=== PATIENT | female | born 1955 | race African-American/Black ===

== ENCOUNTER 2024-05-06 08:16 | Inpatient (IN) | payer OTHER, MEDICAID ==
[~2024-05-06] VITALS: Ht 167.6 cm; Wt 74.5 kg
[~2024-05-06 08:16] MED LIST: ALBU6.7H3 INH; ASPI-1406 MT; ATOR20TA65 MT; FURO40TA5 PO; LUBI8CAP MT; METO-411 MT; MONT-39 MT; PANT40TA51 MT; POTA-205 MT; VENL-180 MT
[2024-05-06 09:17] LABS: BASOPHILS % 0.5 % (0.0-2.0); EOSINOPHILS % 0.5 % (0.0-5.0); HEMATOCRIT. 45.8 % (36.0-48.0); LYMPHOCYTES % 15.3 % (20.0-50.0); MEAN CORPUSCULAR HEMOGLOBIN 29.8 pg (28.0-32.0); MEAN CORPUSCULAR HGB CONC 32.6 g/dL (31.0-37.0); MEAN CORPUSCULAR VOLUME 91.4 fL (81.0-99.0); MEAN PLATELET VOLUME 8.9 fl (7.4-10.4); NEUTROPHILS % 75.7 % (40.0-76.0); PLATELET 180 x1000/uL (130-400); RED BLOOD CELL COUNT 5.01 mill/uL (4.2-5.4); RED CELL DISTRIBUTION WIDTH 15.4 % (11.6-14.6); WHITE BLOOD COUNT 8.6 x1000/uL (4.5-11.0)
[2024-05-06 09:19] LABS: CHLORIDE 100 mEq/L (98-107); POTASSIUM 3.3 mEq/L (3.5-5.1); SODIUM 141 mEq/L (136-145)
[2024-05-06 09:20] LABS: CALCIUM 9.7 mg/dL (8.7-10.4); CARBON DIOXIDE 38 mEq/L (21-32)
[2024-05-06 09:25] LABS: CREATININE 1.1 mg/dL (0.6-1.0); GLUCOSE 100 mg/dL (70-105); UREA NITROGEN BLOOD 15 mg/dL (9-23)
[2024-05-06 09:44] LABS: TROPONIN I HIGH SENSITIVITY < 4 ng/L (3.0-34)
[2024-05-06 10:00] LABS: BG BASE EXCESS 8.2 mmol/L (-2.0-3.0); BG DEOXYHEMOGLOBIN 1.5 % (0.0-5.0); BG FRACTION INSPIRED OXYGEN 30; BG HCO3 ACT 36.5 mmol/L (21.0-28.0); BG METHEMOGLOBIN 0.1 % (0.5-1.5); BG OXYGEN SATURATION 98.5 % (94.0-98.0); BG OXYHEMOGLOBIN 97.4 % (94.0-98.0); BG PCO2 65.9 mmHg (32.0-45.0); BG PH 7.361 (7.350-7.450); BG PO2 109.6 mmHg (83.0-108.0); BG SAMPLE SITE RIGHT RADIAL; BG TOTAL HEMOGLOBIN 15.8 g/dL (12.0-16.0); BG VENT MODE NASAL CANNULA
[2024-05-06] MEDS: IPRATROPIUM BROMIDE (0.02%) 0.5MG/2.5ML NEB HHN STA (10:14)
[2024-05-06] MEDS: ALBUTEROL (0.083%) 2.5MG/3ML NEB HHN STA (10:14)
[2024-05-06 10:16] VITALS: PULSE 69; RESP 18; O2SAT 99
[2024-05-06] MEDS: METHYLPREDNISOLONE SOD SUCC 125MG/2ML (ACT-O-VIAL) IV STA (10:20)
[2024-05-06 10:25] LABS: BASOPHILS % 0.4 % (0.0-2.0); EOSINOPHILS % 0.6 % (0.0-5.0); HEMATOCRIT. 45.4 % (36.0-48.0); HEMOGLOBIN. 14.9 g/dL (12.0-16.0); LYMPHOCYTES % 18.3 % (20.0-50.0); MEAN CORPUSCULAR HEMOGLOBIN 29.9 pg (28.0-32.0); MEAN CORPUSCULAR HGB CONC 32.9 g/dL (31.0-37.0); MEAN PLATELET VOLUME 9.2 fl (7.4-10.4); NEUTROPHILS % 72.7 % (40.0-76.0); PLATELET 177 x1000/uL (130-400); RED BLOOD CELL COUNT 4.99 mill/uL (4.2-5.4); RED CELL DISTRIBUTION WIDTH 15.5 % (11.6-14.6); WHITE BLOOD COUNT 9.1 x1000/uL (4.5-11.0)
[2024-05-06 10:28] LABS: CLARITY URINE CLOUDY (CLEAR); COLOR URINE YELLOW (YELLOW); GLUCOSE URINE NEGATIVE (NEGATIVE); KETONES URINE NEGATIVE (NEGATIVE); LEUKOCYTE ESTERASE URINE 2+ (NEGATIVE); NITRITE URINE POSITIVE (NEGATIVE); OCCULT BLOOD URINE 1+ (NEGATIVE); PH URINE 5.5 (4.5-8.0); PROTEIN URINE TRACE (NEGATIVE); SPECIFIC GRAVITY URINE 1.013 (1.005-1.030)
[2024-05-06 10:41] LABS: SQUAMOUS EPITHELIAL CELL URINE 2+ /lpf (RARE/1+)
[2024-05-06 10:42] LABS: BACTERIA URINE 4+; WBC URINE 25-50 /hpf (0-2)
[2024-05-06] MEDS: ONDANSETRON HCL 4MG/2ML INJ IV ONE (10:45)
[2024-05-06] MEDS: CEFTRIAXONE 1GM/50ML 50 ML IV ONE (11:07)
[2024-05-06] MEDS ORDERED: ONDANSETRON HCL 4MG/2ML INJ IV PRN (16:15)
[2024-05-06] MEDS: METHYLPREDNISOLONE SOD SUCC 40MG/ML (ACT-O-VIAL) IV SCH (17:10)
[2024-05-06] MEDS: ENOXAPARIN 40MG/0.4ML SYR SUBCUT SCH (17:20)
[2024-05-06 20:26] VITALS: PULSE 75; RESP 20; O2SAT 94
[2024-05-06] MEDS: IPRATROPIUM/ALBUTEROL 0.5-3(2.5)MG/3ML NEB HHN SCH (20:26)
[2024-05-06 21:00] VITALS: BP 184/76; PULSE 95; RESP 20; TEMP 36.50292; O2SAT 100
[2024-05-06] MEDS ORDERED: NALOXONE HCL 0.4MG/ML VIAL IV PRN (21:45)
[2024-05-06] MEDS: POTASSIUM CHLORIDE 20MEQ TABLET SR PO NR (22:31)
[2024-05-06 22:53] LABS: *AMPHETAMINES SCREEN URINE NEGATIVE (NEGATIVE); *BARBITURATES SCREEN URINE NEGATIVE (NEGATIVE); *BENZODIAZEPINES SCREEN URINE NEGATIVE (NEGATIVE); *COCAINE SCREEN URINE NEGATIVE (NEGATIVE)
[2024-05-06 22:54] LABS: CANNABINOID URINE SCREEN NEGATIVE (NEGATIVE); ECSTASY MDMA SCREEN URINE NEGATIVE (NEGATIVE); METHADONE URINE SCREEN NEGATIVE (NEGATIVE); OPIATES URINE SCREEN NEGATIVE (NEGATIVE); PHENCYCLIDINE URINE SCREEN NEGATIVE (NEGATIVE)
[2024-05-06 23:24] VITALS: BP 184/76; PULSE 95; RESP 19; TEMP 36.5292
[2024-05-07] VITALS (11 sets, daily range): BP systolic 102–147; BP diastolic 56–84; PULSE 71–108; RESP 18–20; TEMP 35.94732–36.33624; O2SAT 93–99
[2024-05-07 07:37] LABS: CALCIUM 10.4 mg/dL (8.7-10.4); POTASSIUM 3.9 mEq/L (3.5-5.1)
[2024-05-07 07:41] LABS: T4 FREE 0.85 ng/dL (0.89-1.76); THYROID STIMULATING HORMONE 0.7 uIU/mL (0.55-4.78)
[2024-05-07 07:42] LABS: CREATININE 1.2 mg/dL (0.6-1.0)
[2024-05-07 07:48] LABS: HEMATOCRIT. 45.4 % (36.0-48.0); HEMOGLOBIN. 14.9 g/dL (12.0-16.0); MEAN CORPUSCULAR HEMOGLOBIN 30.2 pg (28.0-32.0); MEAN CORPUSCULAR HGB CONC 32.9 g/dL (31.0-37.0); MEAN CORPUSCULAR VOLUME 91.9 fL (81.0-99.0); MEAN PLATELET VOLUME 9.2 fl (7.4-10.4); PLATELET 195 x1000/uL (130-400); RED BLOOD CELL COUNT 4.94 mill/uL (4.2-5.4); RED CELL DISTRIBUTION WIDTH 15.4 % (11.6-14.6); WHITE BLOOD COUNT 10.5 x1000/uL (4.5-11.0)
[2024-05-07 07:52] LABS: DIFFERENTIAL COMMENT 1
[2024-05-07] MEDS: CEFTRIAXONE 1GM/50ML 50 ML IV SCH (09:31)
[2024-05-07] MEDS ORDERED: CEFTRIAXONE 1GM/50ML 50 ML IV SCH (11:00)
[2024-05-07 16:45] LABS: PLATELET ESTIMATE NORMAL
[2024-05-07] MEDS: ACETAMINOPHEN 325MG TABLET PO PRN (17:34)
[2024-05-08] VITALS (8 sets, daily range): BP systolic 115–130; BP diastolic 47–82; PULSE 85–105; RESP 18–20; TEMP 35.89176–36.61404; O2SAT 95–99
[2024-05-08] MEDS ORDERED: PRED10TA MT (11:33)
[2024-05-08] MEDS ORDERED: PRED10TA PO (12:55)
[2024-05-08] MEDS ORDERED: LIDOCAINE HCL 1% 10 MG/ML 10ML VIAL ONE (14:04)
[2024-05-08] MEDS: MEROPENEM 500MG/50ML 50 ML IV SCH (17:54)
[2024-05-09] VITALS (10 sets, daily range): BP systolic 126–140; BP diastolic 69–80; PULSE 72–103; RESP 16–20; TEMP 36.28068–36.55848; O2SAT 96–99
[2024-05-09] MEDS: HYDROCODONE/ACETAMINOPHEN 5/325MG TABLET PO PRN (04:44)
[2024-05-09] MEDS: MEROPENEM 1G/100ML IV SCH (17:43)
[2024-05-10] VITALS (10 sets, daily range): BP systolic 133–151; BP diastolic 79–99; PULSE 92–120; RESP 16–20; TEMP 35.8362–36.72516; O2SAT 93–98
[2024-05-10] MEDS: FLUCONAZOLE 150MG TABLET PO NR (16:56)
== END 2024-05-10 20:40 | disposition home health service (06) | DRG 189 ==
LOC: ER 08:16 → 5WST 11:27 → EDBEDREQTM 11:32 → EDBEDREQ 11:32 → 7EST 21:29
PROVIDERS: ADMIT Internal Medicine; ATTEND Internal Medicine
PROC: 02HV33Z Insertion of Infusion Device into Superior Vena Cava, Percutaneous Approach (ICD-10-PCS; principal; 2024-05-10)
PROC: B548ZZA Ultrasonography of Superior Vena Cava, Guidance (ICD-10-PCS; 2024-05-10)
DX: J96.22 Acute and chronic respiratory failure with hypercapnia (principal); J44.1 Chronic obstructive pulmonary disease with (acute) exacerbation; Z16.12 Extended spectrum beta lactamase (ESBL) resistance; K59.00 Constipation, unspecified; E87.6 Hypokalemia; B96.29 Other Escherichia coli [E. coli] as the cause of diseases classified elsewhere; Z90.5 Acquired absence of kidney; Z88.0 Allergy status to penicillin; Z88.2 Allergy status to sulfonamides; Z86.73 Personal history of transient ischemic attack (TIA), and cerebral infarction without residual deficits; Z87.891 Personal history of nicotine dependence; Z85.528 Personal history of other malignant neoplasm of kidney; Z79.899 Other long term (current) drug therapy
CPT/HCPCS: 36415; 36573; 36600; 71045; 74177; 80048; 80061; 80305; 81003; 82375; 82805; 82962; 83880; 84439; 84443; 84484; 85025; 87077; 87186; 93005; 93970; 94640; 99291; C1725; J0696; J1650; J2185; J2405; J2919; J2920; J3490

== ENCOUNTER 2024-10-13 16:27 | Inpatient (IN) | payer OTHER, MEDICAID, MEDICARE ==
[~2024-10-13] VITALS: Ht 167.6 cm; Wt 81.7 kg
[~2024-10-13 16:27] MED LIST changes: -LUBI8CAP MT; +OLAN5TAB74 PO; -POTA-205 MT; -VENL-180 MT
[2024-10-13 17:31] LABS: BASOPHILS % 0.9 % (0.0-2.0); EOSINOPHILS % 1.8 % (0.0-5.0); HEMATOCRIT. 43.3 % (36.0-48.0); LYMPHOCYTES % 26.7 % (20.0-50.0); MEAN CORPUSCULAR HEMOGLOBIN 29.3 pg (28.0-32.0); MEAN CORPUSCULAR HGB CONC 32.2 g/dL (31.0-37.0); MEAN PLATELET VOLUME 10.3 fl (7.4-10.4); MONOCYTES % 6.5 % (2.0-8.0); NEUTROPHILS % 64.1 % (40.0-76.0); PLATELET 189 x1000/uL (130-400); RED BLOOD CELL COUNT 4.76 mill/uL (4.2-5.4); WHITE BLOOD COUNT 8.9 x1000/uL (4.5-11.0)
[2024-10-13 17:39] LABS: CHLORIDE 101 mEq/L (98-107); POTASSIUM 4.1 mEq/L (3.5-5.1); SODIUM 143 mEq/L (136-145)
[2024-10-13 17:40] LABS: CARBON DIOXIDE 36 mEq/L (21-32)
[2024-10-13] MEDS ORDERED: IPRATROPIUM BROMIDE (0.02%) 0.5MG/2.5ML NEB HHN STA (17:43)
[2024-10-13] MEDS ORDERED: ALBUTEROL (0.083%) 2.5MG/3ML NEB HHN STA (17:43)
[2024-10-13 17:45] LABS: CREATININE 1.4 mg/dL (0.6-1.0); GLUCOSE 116 mg/dL (70-105); UREA NITROGEN BLOOD 18 mg/dL (9-23)
[2024-10-13 17:46] LABS: TROPONIN I HIGH SENSITIVITY < 4 ng/L (3.0-34)
[2024-10-13 18:10] VITALS: PULSE 88; RESP 20; O2SAT 99
[2024-10-13] MEDS: METHYLPREDNISOLONE SOD SUCC 125MG/2ML (ACT-O-VIAL) IV STA (18:10)
[2024-10-13 21:56] VITALS: BP 97/65; PULSE 68; RESP 22; TEMP 36.5
[2024-10-13] MEDS ORDERED: ALBUTEROL 6.7GM HFA INHALER ORI PRN (23:45)
[2024-10-14] VITALS: BP 98/61; PULSE 67; RESP 16; TEMP 36.4; O2SAT 98
[2024-10-14] MEDS ORDERED: IPRATROPIUM/ALBUTEROL 0.5-3(2.5)MG/3ML NEB HHN SCH
[2024-10-14] MEDS: METHYLPREDNISOLONE SOD SUCC 40MG/ML (ACT-O-VIAL) IV SCH (00:19)
[2024-10-14] MEDS: ACETAMINOPHEN 325MG TABLET PO PRN (01:27)
[2024-10-14 04:00] VITALS: BP 113/71; PULSE 54; RESP 15; TEMP 37; O2SAT 97
[2024-10-14] MEDS: PANTOPRAZOLE 40MG DR TABLET PO SCH (05:58)
[2024-10-14 06:26] LABS: HEMATOCRIT. 42.1 % (36.0-48.0); HEMOGLOBIN. 13.9 g/dL (12.0-16.0); LYMPHOCYTES % 12.5 % (20.0-50.0); MEAN CORPUSCULAR HEMOGLOBIN 29.9 pg (28.0-32.0); MEAN CORPUSCULAR VOLUME 90.7 fL (81.0-99.0); MEAN PLATELET VOLUME 10.1 fl (7.4-10.4); MONOCYTES % 0.6 % (2.0-8.0); NEUTROPHILS % 86.9 % (40.0-76.0); PLATELET 153 x1000/uL (130-400); RED BLOOD CELL COUNT 4.64 mill/uL (4.2-5.4); RED CELL DISTRIBUTION WIDTH 15.6 % (11.6-14.6); WHITE BLOOD COUNT 7.2 x1000/uL (4.5-11.0)
[2024-10-14 06:47] LABS: CALCIUM 9.6 mg/dL (8.7-10.4); POTASSIUM 4.1 mEq/L (3.5-5.1)
[2024-10-14 06:53] LABS: CREATININE 1.5 mg/dL (0.6-1.0)
[2024-10-14 08:00] VITALS: BP 94/71; PULSE 60; RESP 20; TEMP 36.7; O2SAT 98
[2024-10-14] MEDS: ASPIRIN 81MG EC TABLET PO SCH (08:12)
[2024-10-14] MEDS: METOPROLOL SUCCINATE 50MG ER TABLET PO SCH (08:14)
[2024-10-14] MEDS: ENOXAPARIN 40MG/0.4ML SYR SUBCUT SCH (08:15)
[2024-10-14 11:53] VITALS: BP 94/58; PULSE 68; RESP 13; TEMP 36.4; O2SAT 97
[2024-10-14 15:44] VITALS: BP 95/66; PULSE 65; RESP 24; TEMP 36.7; O2SAT 97
[2024-10-14] MEDS: MONTELUKAST SODIUM 10MG TABLET PO SCH (17:22)
[2024-10-14 20:00] VITALS: BP 88/53; PULSE 88; RESP 16; TEMP 36.8; O2SAT 98
[2024-10-14] MEDS: OLANZAPINE 10MG TABLET PO SCH (20:23)
[2024-10-14] MEDS: ATORVASTATIN CALCIUM 20MG TABLET PO SCH (20:24)
[2024-10-15] VITALS: BP 106/58; PULSE 65; RESP 17; TEMP 36.7; O2SAT 98
[2024-10-15 04:55] VITALS: BP 87/57; RESP 18; O2SAT 99
[2024-10-15 08:00] VITALS: BP 99/53; PULSE 51; RESP 18; TEMP 36.6; O2SAT 98
[2024-10-15 12:00] VITALS: BP 98/68; PULSE 64; RESP 26; TEMP 36.6; O2SAT 98
[2024-10-15 16:00] VITALS: BP 107/71; PULSE 65; RESP 20; TEMP 36.7; O2SAT 97
[2024-10-15 20:01] VITALS: BP 104/61; PULSE 56; RESP 21; TEMP 36.6; O2SAT 97
[2024-10-16 00:01] VITALS: BP 113/50; PULSE 58; RESP 16; TEMP 36.1; O2SAT 96
[2024-10-16 04:02] VITALS: BP 98/50; PULSE 48; RESP 19; TEMP 36.2; O2SAT 95
[2024-10-16 08:00] VITALS: BP 94/56; PULSE 59; RESP 19; TEMP 36.5; O2SAT 96
[2024-10-16 12:00] VITALS: BP 105/64; PULSE 44; RESP 17; TEMP 36.4; O2SAT 96
[2024-10-16] MEDS ORDERED: P20 MT (12:52)
[2024-10-16] MEDS ORDERED: PANT40TA51 PO (12:52)
[2024-10-16] MEDS ORDERED: MONT-46 PO (12:52)
[2024-10-16 15:27] VITALS: TEMP 97.9
[2024-10-17] MEDS ORDERED: FAMOTIDINE 20MG TABLET PO SCH (09:00)
== END 2024-10-16 17:47 | disposition home or self-care (01) | DRG 192 ==
LOC: ER 16:27 → 3WST 21:36
PROVIDERS: ADMIT Internal Medicine; ATTEND Internal Medicine
DX: J44.1 Chronic obstructive pulmonary disease with (acute) exacerbation (principal); F03.90 Unspecified dementia, unspecified severity, without behavioral disturbance, psychotic disturbance, mood disturbance, and anxiety; M79.662 Pain in left lower leg; M79.661 Pain in right lower leg; Z79.899 Other long term (current) drug therapy; Z88.0 Allergy status to penicillin; Z86.73 Personal history of transient ischemic attack (TIA), and cerebral infarction without residual deficits; Z88.2 Allergy status to sulfonamides; Z99.81 Dependence on supplemental oxygen
CPT/HCPCS: 36415; 71045; 80048; 83880; 84484; 85025; 85379; 93005; 93923; 93970; 94640; 99285; A4606; J1650; J2919; J2920

== ENCOUNTER 2025-06-20 19:38 | Inpatient (IN) | payer OTHER, MEDICAID, MEDICARE ==
[~2025-06-20] VITALS: Ht 167.6 cm; Wt 71.7 kg
[~2025-06-20 19:38] MED LIST changes: +MONT-46 PO; +P20 MT; +PANT40TA51 PO
[2025-06-20 20:52] LABS: BASOPHILS % 0.5 % (0.0-2.0); EOSINOPHILS % 0.4 % (0.0-5.0); HEMATOCRIT. 29.6 % (36.0-48.0); HEMOGLOBIN. 9.6 g/dL (12.0-16.0); LYMPHOCYTES % 13.9 % (20.0-50.0); MEAN PLATELET VOLUME 8.7 fl (7.4-10.4); MONOCYTES % 7.2 % (2.0-8.0); NEUTROPHILS % 78.0 % (40.0-76.0); PLATELET 132 x1000/uL (130-400); RED BLOOD CELL COUNT 3.19 mill/uL (4.2-5.4); RED CELL DISTRIBUTION WIDTH 16.6 % (11.6-14.6)
[2025-06-20 21:06] LABS: INR 1.1
[2025-06-20 21:09] LABS: TROPONIN I HIGH SENSITIVITY 6 ng/L (3.0-34); UREA NITROGEN BLOOD 91 mg/dL (9-23)
[2025-06-20 21:10] LABS: ASPARTATE AMINOTRANSFERASE 16 IU/L (<34)
[2025-06-20 21:11] LABS: BILIRUBIN DIRECT < 0.1 mg/dL (<=3.0); BILIRUBIN TOTAL 0.2 mg/dL (0.1-1.0); PROTEIN TOTAL 6.3 g/dL (6.0-8.3)
[2025-06-20 21:15] LABS: CREATININE 15.8 mg/dL (0.6-1.0)
[2025-06-20] MEDS: PANTOPRAZOLE 80 MG in SODIUM CHLORIDE 0.9% 100 ML IV SCH (21:54)
[2025-06-20] MEDS: DEXTROSE 50% WATER 50ML SYRINGE IV ONE (22:16)
[2025-06-20] MEDS: INSULIN REGULAR (HUMULIN R) 1000UNITS/10ML VIAL IV ONE (22:16)
[2025-06-20] MEDS: CALCIUM GLUCONATE 100MG/ML 10ML VIAL IV ONE (22:22)
[2025-06-20] MEDS: FUROSEMIDE 40MG/4ML VIAL IV ONE (22:22)
[2025-06-20] MEDS: SODIUM BICARBONATE 8.4% 50MEQ/50ML VIAL IV ONE (22:24)
[2025-06-20] MEDS ORDERED: SODIUM BICARBONATE 8.4% 50MEQ/50ML VIAL IV NR (22:30)
[2025-06-20 23:11] VITALS: PULSE 90; RESP 18; O2SAT 97
[2025-06-20] MEDS: ALBUTEROL (0.5%) 2.5MG/0.5ML NEB HHN ONE (23:11)
[2025-06-20] MEDS: ALBUTEROL (0.083%) 2.5MG/3ML NEB ONE (23:26)
[2025-06-20] MEDS: SODIUM BICARBONATE 8.4% 50MEQ/50ML SYR IV NR (23:58)
[2025-06-21] VITALS (14 sets, daily range): BP systolic 115–156; BP diastolic 65–92; PULSE 100–127; RESP 16–22; TEMP 36.4–36.9; O2SAT 95–100
[2025-06-21] MEDS ORDERED: AMLO5TAB88 MT (03:48)
[2025-06-21] MEDS ORDERED: MEMA5TAB16 MT (03:48)
[2025-06-21] MEDS ORDERED: DILT30TA3 MT (03:48)
[2025-06-21] MEDS ORDERED: MIDO5TAB4 MT (03:48)
[2025-06-21] MEDS: PANTOPRAZOLE 40MG DR TABLET PO SCH (06:41)
[2025-06-21] MEDS: HYDRALAZINE HCL 50MG TABLET PO SCH (06:42)
[2025-06-21 07:33] LABS: INFLUENZA TYPE A Presumptive Negative (Pres. Neg.); INFLUENZA TYPE B Presumptive Negative (Pres. Neg.); RESPIRATORY SYNCYTIAL VIRUS Not Detected (Not Detectd)
[2025-06-21] MEDS: IPRATROPIUM/ALBUTEROL 0.5-3(2.5)MG/3ML NEB HHN SCH (08:00)
[2025-06-21 08:05] LABS: BASOPHILS % 0.5 % (0.0-2.0); EOSINOPHILS % 1.5 % (0.0-5.0); HEMATOCRIT. 27.1 % (36.0-48.0); HEMOGLOBIN. 8.7 g/dL (12.0-16.0); LYMPHOCYTES % 15.0 % (20.0-50.0); MEAN PLATELET VOLUME 8.5 fl (7.4-10.4); MONOCYTES % 10.3 % (2.0-8.0); NEUTROPHILS % 72.7 % (40.0-76.0); PLATELET 142 x1000/uL (130-400); RED BLOOD CELL COUNT 2.89 mill/uL (4.2-5.4); RED CELL DISTRIBUTION WIDTH 16.7 % (11.6-14.6)
[2025-06-21 08:10] LABS: UREA NITROGEN BLOOD 81.0 mg/dL (9-23)
[2025-06-21 08:52] LABS: CREATININE 15.4 mg/dL (0.6-1.0)
[2025-06-21 08:54] LABS: HEPATITIS C AB NON REACTIVE (Neg) (Negative)
[2025-06-21] MEDS: ENOXAPARIN 30MG/0.3ML SYR SUBCUT SCH (09:20)
[2025-06-21] MEDS: HYDROCODONE/ACETAMINOPHEN 5/325MG TABLET PO PRN (23:46)
[2025-06-22] VITALS (10 sets, daily range): BP systolic 116–134; BP diastolic 67–73; PULSE 102–121; RESP 13–20; TEMP 36.7–36.8; O2SAT 92–97
[2025-06-22 07:21] LABS: BASOPHILS % 0.9 % (0.0-2.0); EOSINOPHILS % 4.8 % (0.0-5.0); HEMATOCRIT. 25.8 % (36.0-48.0); HEMOGLOBIN. 8.2 g/dL (12.0-16.0); LYMPHOCYTES % 19.3 % (20.0-50.0); MEAN PLATELET VOLUME 8.5 fl (7.4-10.4); MONOCYTES % 11.8 % (2.0-8.0); NEUTROPHILS % 63.2 % (40.0-76.0); PLATELET 133 x1000/uL (130-400); RED BLOOD CELL COUNT 2.81 mill/uL (4.2-5.4); RED CELL DISTRIBUTION WIDTH 17.1 % (11.6-14.6)
[2025-06-22 07:29] LABS: UREA NITROGEN BLOOD 57 mg/dL (9-23)
[2025-06-22 07:42] LABS: FOLIC ACID (FOLATE) SERUM 7.95 ng/mL (>5.38); VITAMIN B12 SERUM 624 pg/mL (211-911)
[2025-06-22 07:49] LABS: CREATININE 11.2 mg/dL (0.6-1.0)
[2025-06-22] MEDS ORDERED: HEMORRHOIDAL SUPP PR PRN (08:15)
[2025-06-22 09:38] LABS: PHOSPHORUS 5.8 mg/dL (2.5-4.9)
[2025-06-22] MEDS: FOLIC ACID/VITAMIN B COMP W-C TABLET PO SCH (10:38)
[2025-06-22] MEDS: LACTULOSE 20G/30ML UDC PO SCH (10:39)
[2025-06-22] MEDS: ONDANSETRON HCL 4MG/2ML INJ IV PRN (18:43)
[2025-06-22] MEDS: CLOTRIMAZOLE/BETAMETHASONE 1/0.05% CREAM 15GM TOP SCH (21:52)
[2025-06-23] VITALS (17 sets, daily range): BP systolic 105–134; BP diastolic 60–98; PULSE 76–127; RESP 15–24; TEMP 36.4–37.3; O2SAT 95–98
[2025-06-23 07:14] LABS: BASOPHILS % 0.6 % (0.0-2.0); EOSINOPHILS % 4.3 % (0.0-5.0); HEMATOCRIT. 25.3 % (36.0-48.0); HEMOGLOBIN. 8.3 g/dL (12.0-16.0); LYMPHOCYTES % 15.6 % (20.0-50.0); MEAN PLATELET VOLUME 8.9 fl (7.4-10.4); MONOCYTES % 10.4 % (2.0-8.0); NEUTROPHILS % 69.1 % (40.0-76.0); PLATELET 145 x1000/uL (130-400); RED BLOOD CELL COUNT 2.74 mill/uL (4.2-5.4); RED CELL DISTRIBUTION WIDTH 17.1 % (11.6-14.6)
[2025-06-23 07:17] LABS: UREA NITROGEN BLOOD 40.0 mg/dL (9-23)
[2025-06-23 08:33] LABS: CREATININE 7.7 mg/dL (0.6-1.0)
[2025-06-23] MEDS: METOPROLOL TARTRATE 25MG TABLET PO SCH (21:26)
[2025-06-24] VITALS (9 sets, daily range): BP systolic 118–136; BP diastolic 67–96; PULSE 72–104; RESP 14–22; TEMP 36.7–37.3; O2SAT 95–100
[2025-06-24] MEDS: CEFTRIAXONE 1GM/50ML 50 ML IV SCH (13:00)
[2025-06-24 14:41] LABS: CLARITY URINE CLEAR (CLEAR); COLOR URINE YELLOW (YELLOW); GLUCOSE URINE NEGATIVE (NEGATIVE); KETONES URINE TRACE (NEGATIVE); LEUKOCYTE ESTERASE URINE TRACE (NEGATIVE); NITRITE URINE NEGATIVE (NEGATIVE); OCCULT BLOOD URINE 3+ (NEGATIVE); PH URINE 6.5 (4.5-8.0); PROTEIN URINE 1+ (NEGATIVE); SPECIFIC GRAVITY URINE 1.013 (1.005-1.030); UROBILINOGEN URINE 0.2 E.U./dL (0.2-1.0)
[2025-06-24 15:01] LABS: SQUAMOUS EPITHELIAL CELL URINE FEW /lpf (RARE/1+)
[2025-06-24 15:02] LABS: RBC URINE 50-100 /hpf (0-2)
[2025-06-24 15:04] LABS: BACTERIA URINE TRACE; YEAST URINE 2+
[2025-06-25] VITALS (17 sets, daily range): BP systolic 94–116; BP diastolic 53–75; PULSE 79–100; RESP 15–24; TEMP 36.6–37.2; O2SAT 93–99
[2025-06-25 06:44] LABS: BASOPHILS % 0.3 % (0.0-2.0); EOSINOPHILS % 2.5 % (0.0-5.0); HEMATOCRIT. 25.4 % (36.0-48.0); HEMOGLOBIN. 8.0 g/dL (12.0-16.0); LYMPHOCYTES % 10.3 % (20.0-50.0); MEAN PLATELET VOLUME 8.8 fl (7.4-10.4); MONOCYTES % 10.4 % (2.0-8.0); NEUTROPHILS % 76.5 % (40.0-76.0); PLATELET 168 x1000/uL (130-400); RED BLOOD CELL COUNT 2.73 mill/uL (4.2-5.4); RED CELL DISTRIBUTION WIDTH 17.3 % (11.6-14.6)
[2025-06-25 07:10] LABS: UREA NITROGEN BLOOD 15.0 mg/dL (9-23)
[2025-06-25 08:04] LABS: CREATININE 3.7 mg/dL (0.6-1.0)
[2025-06-25] MEDS: FLUCONAZOLE 100MG TABLET PO SCH (13:22)
[2025-06-26] VITALS (7 sets, daily range): BP systolic 95–112; BP diastolic 61–68; PULSE 78–87; RESP 16–18; TEMP 36.7–37.1; O2SAT 98–100
[2025-06-26 07:38] LABS: BASOPHILS % 0.3 % (0.0-2.0); EOSINOPHILS % 3.0 % (0.0-5.0); HEMATOCRIT. 24.9 % (36.0-48.0); HEMOGLOBIN. 7.9 g/dL (12.0-16.0); LYMPHOCYTES % 12.3 % (20.0-50.0); MEAN PLATELET VOLUME 9.1 fl (7.4-10.4); MONOCYTES % 9.4 % (2.0-8.0); NEUTROPHILS % 75.0 % (40.0-76.0); PLATELET 164 x1000/uL (130-400); RED BLOOD CELL COUNT 2.68 mill/uL (4.2-5.4); RED CELL DISTRIBUTION WIDTH 17.5 % (11.6-14.6)
[2025-06-26 07:42] LABS: CREATININE 3.5 mg/dL (0.6-1.0); UREA NITROGEN BLOOD 12.0 mg/dL (9-23)
[2025-06-26] MEDS ORDERED: HYDR50TA39 PO (10:02)
[2025-06-26] MEDS ORDERED: METO25TA6 PO (10:02)
[2025-06-26] MEDS ORDERED: EPOETIN ALFA-EPBX 4,000 UNITS/ML VIAL SUBCUT SCH (21:00)
== END 2025-06-26 15:33 | disposition home or self-care (01) | DRG 640 ==
LOC: ER 19:38 → 3WST 21:44 → EDBEDREQTM 21:46 → EDBEDREQ 21:46 → ENRESERV 06-21 00:37
PROVIDERS: ADMIT Internal Medicine; ATTEND Internal Medicine
PROC: 5A1D70Z Performance of Urinary Filtration, Intermittent, Less than 6 Hours Per Day (ICD-10-PCS; principal; 2025-06-21)
PROC: 5A1D70Z Performance of Urinary Filtration, Intermittent, Less than 6 Hours Per Day (ICD-10-PCS; 2025-06-23)
PROC: 5A1D70Z Performance of Urinary Filtration, Intermittent, Less than 6 Hours Per Day (ICD-10-PCS; 2025-06-25)
DX: E87.5 Hyperkalemia (principal); N18.6 End stage renal disease; I13.11 Hypertensive heart and chronic kidney disease without heart failure, with stage 5 chronic kidney disease, or end stage renal disease; E87.20 Acidosis, unspecified; B36.9 Superficial mycosis, unspecified; D63.1 Anemia in chronic kidney disease; G40.909 Epilepsy, unspecified, not intractable, without status epilepticus; K62.5 Hemorrhage of anus and rectum; Z99.2 Dependence on renal dialysis; J44.9 Chronic obstructive pulmonary disease, unspecified; F03.90 Unspecified dementia, unspecified severity, without behavioral disturbance, psychotic disturbance, mood disturbance, and anxiety; J84.9 Interstitial pulmonary disease, unspecified; Z20.822 Contact with and (suspected) exposure to COVID-19; B37.9 Candidiasis, unspecified; Z79.82 Long term (current) use of aspirin; Z99.81 Dependence on supplemental oxygen; Z79.899 Other long term (current) drug therapy; Z86.73 Personal history of transient ischemic attack (TIA), and cerebral infarction without residual deficits; Z88.0 Allergy status to penicillin; Z88.2 Allergy status to sulfonamides; Z88.5 Allergy status to narcotic agent; Z88.8 Allergy status to other drugs, medicaments and biological substances; Z91.158 Patient's noncompliance with renal dialysis for other reason
CPT/HCPCS: 36415; 71045; 74018; 80048; 80076; 80320; 81003; 82607; 82728; 82746; 83540; 83550; 83880; 84100; 84484; 85014; 85018; 85025; 85027; 85044; 86705; 86706; 86850; 86900; 87106; 87340; 87420; 87426; 87804; 90935; 93005; 93970; 94070; 94640; 94664; 97162; 99291; A4606; J0612; J0696; J1650; J1815; J1938; J2405; J2470; J3490; J7050; G0480

== ENCOUNTER 2025-06-30 13:53 | Inpatient (IN) | payer OTHER, MEDICAID ==
[~2025-06-30] VITALS: Ht 167.6 cm; Wt 70.3 kg
[~2025-06-30 13:53] MED LIST changes: +AMLO5TAB88 MT; +DILT30TA3 MT; +HYDR50TA39 PO; +MEMA5TAB16 MT; -METO-411 MT; +METO25TA6 PO; -P20 MT
[2025-06-30 16:22] LABS: BASOPHILS % 0.4 % (0.0-2.0); EOSINOPHILS % 0.6 % (0.0-5.0); HEMATOCRIT. 28.2 % (36.0-48.0); HEMOGLOBIN. 9.2 g/dL (12.0-16.0); LYMPHOCYTES % 9.4 % (20.0-50.0); MEAN PLATELET VOLUME 9.1 fl (7.4-10.4); MONOCYTES % 7.5 % (2.0-8.0); NEUTROPHILS % 82.1 % (40.0-76.0); PLATELET 204 x1000/uL (130-400); RED BLOOD CELL COUNT 3.02 mill/uL (4.2-5.4); RED CELL DISTRIBUTION WIDTH 16.9 % (11.6-14.6)
[2025-06-30 16:31] LABS: INR 1.0
[2025-06-30 16:36] LABS: TROPONIN I HIGH SENSITIVITY < 4 ng/L (3.0-34)
[2025-06-30 16:38] LABS: ASPARTATE AMINOTRANSFERASE 39 IU/L (<34); BILIRUBIN DIRECT < 0.1 mg/dL (<=3.0); BILIRUBIN TOTAL 0.2 mg/dL (0.1-1.0); PROTEIN TOTAL 5.7 g/dL (6.0-8.3)
[2025-06-30 16:42] LABS: UREA NITROGEN BLOOD 34 mg/dL (9-23)
[2025-06-30 16:45] LABS: CREATININE 5.9 mg/dL (0.6-1.0)
[2025-06-30] MEDS ORDERED: SODIUM BICARBONATE 8.4% 50MEQ/50ML VIAL IV ONE (17:00)
[2025-06-30] MEDS: SODIUM BICARBONATE 8.4% 50MEQ/50ML SYR IV SCH (17:18)
[2025-06-30] MEDS: DEXTROSE 50% WATER 50ML SYRINGE IV ONE (17:18)
[2025-06-30] MEDS: INSULIN REGULAR (HUMULIN R) 1000UNITS/10ML VIAL IV ONE (17:19)
[2025-06-30] MEDS: CALCIUM GLUCONATE 100MG/ML 10ML VIAL IV ONE (17:21)
[2025-06-30 17:37] LABS: HEPATITIS A AB IGM NEGATIVE (Negative)
[2025-06-30 17:38] LABS: HEPATITIS B CORE AB IGM NEGATIVE (Negative); HEPATITIS C AB NON REACTIVE (Neg) (Negative)
[2025-06-30 20:00] VITALS: BP 125/57; PULSE 84; RESP 18; TEMP 36.5; TEMP 36.5292; O2SAT 100
[2025-06-30] MEDS ORDERED: CLONIDINE 0.1MG TABLET PO PRN (20:30)
[2025-06-30] MEDS ORDERED: ONDANSETRON HCL 4MG/2ML INJ IV PRN (20:30)
[2025-06-30] MEDS: METOPROLOL TARTRATE 25MG TABLET PO SCH (21:26)
[2025-06-30 22:25] VITALS: BP 126/64; PULSE 80; RESP 17; TEMP 36.6696; O2SAT 100
[2025-06-30 22:30] VITALS: BP 120/69; PULSE 80; RESP 18; TEMP 36.6696; O2SAT 100
[2025-06-30 23:00] VITALS: BP 112/67; PULSE 78; RESP 17
[2025-06-30 23:30] VITALS: BP 115/70; PULSE 71; RESP 17
[2025-07-01] VITALS (14 sets, daily range): BP systolic 94–131; BP diastolic 48–72; PULSE 71–85; RESP 16–20; TEMP 36–36.72516; O2SAT 93–100
[2025-07-01 00:55] LABS: TROPONIN I HIGH SENSITIVITY < 4 ng/L (3.0-34)
[2025-07-01] MEDS: IPRATROPIUM/ALBUTEROL 0.5-3(2.5)MG/3ML NEB HHN SCH (01:55)
[2025-07-01] MEDS: ASPIRIN 81MG EC TABLET PO SCH (09:21)
[2025-07-01] MEDS: ENOXAPARIN 30MG/0.3ML SYR SUBCUT SCH (12:09)
[2025-07-01] MEDS: FAMOTIDINE 20MG/2ML VIAL IV SCH (12:09)
[2025-07-01 12:56] LABS: TROPONIN I HIGH SENSITIVITY < 4 ng/L (3.0-34)
[2025-07-01] MEDS: ATORVASTATIN CALCIUM 20MG TABLET PO SCH (20:53)
[2025-07-01] MEDS: FUROSEMIDE 40MG TABLET PO SCH (20:58)
[2025-07-01] MEDS: OLANZAPINE 10MG TABLET PO SCH (20:58)
[2025-07-01] MEDS: MENTHOL/LANOLIN/CALAMINE/ZN OX OINT 71GM TOP SCH (21:30)
[2025-07-01] MEDS ORDERED: ACETAMINOPHEN 650MG/20.3ML UDC PO PRN ×2 (22:15)
[2025-07-01] MEDS: ACETAMINOPHEN 325MG TABLET PO PRN (22:26)
[2025-07-02] VITALS (11 sets, daily range): BP systolic 102–130; BP diastolic 49–66; PULSE 68–81; RESP 16–20; TEMP 35.9–37; O2SAT 97–100
[2025-07-02 08:29] LABS: BASOPHILS % 0.5 % (0.0-2.0); EOSINOPHILS % 4.8 % (0.0-5.0); HEMATOCRIT. 23.6 % (36.0-48.0); HEMOGLOBIN. 7.5 g/dL (12.0-16.0); LYMPHOCYTES % 25.5 % (20.0-50.0); MEAN PLATELET VOLUME 9.2 fl (7.4-10.4); MONOCYTES % 11.8 % (2.0-8.0); NEUTROPHILS % 57.4 % (40.0-76.0); PLATELET 170 x1000/uL (130-400); RED BLOOD CELL COUNT 2.54 mill/uL (4.2-5.4); RED CELL DISTRIBUTION WIDTH 16.5 % (11.6-14.6)
[2025-07-02 08:41] LABS: LDL CHOLESTEROL 53.0 mg/dL (5-100); TRIGLYCERIDE 116.0 mg/dL (0-150); UREA NITROGEN BLOOD 25.0 mg/dL (9-23)
[2025-07-02 08:42] LABS: CREATININE 5.6 mg/dL (0.6-1.0)
[2025-07-02 08:43] LABS: INR 1.1
[2025-07-02] MEDS: MEMANTINE HCL 5MG TABLET PO SCH (11:01)
[2025-07-03] VITALS (8 sets, daily range): BP systolic 99–116; BP diastolic 50–80; PULSE 65–92; RESP 15–21; TEMP 36.3–36.6; O2SAT 95–100
[2025-07-03 12:46] LABS: BASOPHILS % 0.6 % (0.0-2.0); EOSINOPHILS % 1.9 % (0.0-5.0); HEMATOCRIT. 22.5 % (36.0-48.0); HEMOGLOBIN. 7.3 g/dL (12.0-16.0); LYMPHOCYTES % 13.4 % (20.0-50.0); MEAN PLATELET VOLUME 9.0 fl (7.4-10.4); MONOCYTES % 10.7 % (2.0-8.0); NEUTROPHILS % 73.4 % (40.0-76.0); PLATELET 147 x1000/uL (130-400); RED BLOOD CELL COUNT 2.43 mill/uL (4.2-5.4); RED CELL DISTRIBUTION WIDTH 16.2 % (11.6-14.6)
[2025-07-03 13:05] LABS: UREA NITROGEN BLOOD 28 mg/dL (9-23)
[2025-07-03 13:07] LABS: ASPARTATE AMINOTRANSFERASE 13 IU/L (<34); BILIRUBIN TOTAL 0.2 mg/dL (0.1-1.0); PROTEIN TOTAL 5.3 g/dL (6.0-8.3)
[2025-07-03 13:43] LABS: CREATININE 6.4 mg/dL (0.6-1.0)
== END 2025-07-03 17:18 | disposition home or self-care (01) | DRG 682 ==
LOC: ER 13:53 → 7WST 16:46 → EDBEDREQ 16:52
PROVIDERS: ADMIT Internal Medicine; ATTEND Internal Medicine
PROC: 5A1D70Z Performance of Urinary Filtration, Intermittent, Less than 6 Hours Per Day (ICD-10-PCS; principal; 2025-06-30)
PROC: 5A1D70Z Performance of Urinary Filtration, Intermittent, Less than 6 Hours Per Day (ICD-10-PCS; 2025-07-02)
DX: I12.0 Hypertensive chronic kidney disease with stage 5 chronic kidney disease or end stage renal disease (principal); N18.6 End stage renal disease; G93.40 Encephalopathy, unspecified; E87.20 Acidosis, unspecified; J81.1 Chronic pulmonary edema; L89.156 Pressure-induced deep tissue damage of sacral region; Z99.2 Dependence on renal dialysis; D64.9 Anemia, unspecified; F03.90 Unspecified dementia, unspecified severity, without behavioral disturbance, psychotic disturbance, mood disturbance, and anxiety; J44.9 Chronic obstructive pulmonary disease, unspecified; G40.909 Epilepsy, unspecified, not intractable, without status epilepticus; E87.5 Hyperkalemia; E87.70 Fluid overload, unspecified; R06.03 Acute respiratory distress; L22 Diaper dermatitis; R32 Unspecified urinary incontinence; Z55.6 Problems related to health literacy; Z79.899 Other long term (current) drug therapy; Z86.73 Personal history of transient ischemic attack (TIA), and cerebral infarction without residual deficits; Z88.0 Allergy status to penicillin; Z88.2 Allergy status to sulfonamides; Z88.5 Allergy status to narcotic agent; Z88.8 Allergy status to other drugs, medicaments and biological substances; Z91.158 Patient's noncompliance with renal dialysis for other reason
CPT/HCPCS: 36415; 71045; 80048; 80053; 80061; 80076; 83036; 83880; 84484; 85025; 86705; 86709; 87340; 90935; 93005; 94070; 94640; 94664; 99285; J0612; J1308; J1650; J1815; J3490